=== PATIENT | female | born 1970 | race Caucasian/White ===

== ENCOUNTER → 2022-06-23 | Outpatient (CLI) | payer BC, SELFPAY ==
[2022-06-23 16:07] LABS: Absolute Lymphocyte Count 1.46 X10^3/uL (0.83-4.51); Absolute Neutrophil Count 3.3 X10^3/uL (2.0-7.7); Basophil# 0.04 X10^3/uL; Basophil% 0.7 % (0-1); Eosinophil# 0.18 X10^3/uL; Eosinophils% 3.1 % (0-5); Hematocrit 42.8 % (37-47); Hemoglobin 13.9 g/dL (12.0-15.0); Lymphocyte # 1.46 X10^3/ul (0.83-4.51); Lymphocyte % 25.2 % (19-41); Mean Corp Hgb Conc 32.5 g/dL (32-36); Mean Corpuscular Volume 89.2 fL (81-99); Mean Platelet Vol. 10.5 fl (6.2-12.0); Monocyte# 0.77 X10^3/uL; Monocyte% 13.3 % (0-10); NRBC Flagged by Analyzer 0 % (0-5); Neutrophil # 3.32 X10^3/uL (2.7-7.7); Neutrophil % 57.4 % (47-70); Platelet Count 342 K/mm3 (150-450); RBC Distribution Width CV 12.7 % (11.6-14.6); RBC Distribution Width SD 41.7 fl (35.1-43.9); White Blood Count 5.8 K/mm3 (4.4-11.0)
[2022-06-23 16:32] LABS: Erythrocyte Sedimentation Rate 41 mm/hr (0-30)
[2022-06-23 16:40] LABS: ALB/GLOB Ratio 0.9 RATIO (0.9-2.4); AST(SGOT) 20 U/L (15-37); Alanine Aminotransfer ALT/SGPT 35 U/L (13-56); Albumin, Serum 3.9 g/dL (3.2-5.0); Alkaline Phosphatase 79 U/L (45-117); Anion Gap 6 (5-15); BUN 13 mg/dL (7-18); BUN/Creat Ratio 11.6 RATIO (10-20); Calcium,Total 9.6 mg/dL (8.5-10.1); Chloride 103 mmol/L (98-107); Creatinine, Serum 1.12 mg/dL (0.55-1.02); EST Glomerular Filtration Rate 54 mL/min (>60); Est Glom Filt Rate - Afr Amer 65 mL/min (>60); Globulin 4.2 g/dL (2.2-4.2); Glucose 94 mg/dL (74-106); Potassium 3.5 mmol/L (3.5-5.1); Protein, Total 8.1 g/dL (6.4-8.2); Sodium Level 136 mmol/L (136-145)
[2022-06-26 15:08] LABS: Cytoplasmic Ab (C-ANCA) <1:20 titer (Neg:<1:20); Endomysial Antibody IgA Negative (Negative); Immunoglobulin A 388 mg/dL (87-352)
[2022-06-28 20:57] LABS: Anti-Smooth Muscle ABS 8 Units (0-19); Perinuclear Ab (P-ANCA) <1:20 titer (Neg:<1:20); t-Transglutaminase IgA <2 U/mL (0-3)
[2022-06-29 16:08] LABS: Anti-Centromere B Ab <0.2 AI (0.0-0.9); Anti-Chromatin 0.7 AI (0.0-0.9); Anti-Jo <0.2 AI (0.0-0.9); Anti-Scleroderma-70 AB <0.2 AI (0.0-0.9); RNP Ab 3.5 AI (0.0-0.9); SJOGREN'S Anti-SS-A test < 0.2 AI (0.0-0.9); SJOGREN'S Anti-SS-B test < 0.2 AI (0.0-0.9); Smith Ab <0.2 AI (0.0-0.9)
[2022-06-30 11:03] LABS: Anti-Mitochondrial AB <20.0 Units (0.0-20.0); Anti-dsDNA Ab 1 IU/mL (0-9)
== END | disposition home or self-care (01) ==
LOC: LAB 15:43
PROVIDERS: PCP Family Medicine; Visit Provider Nurse Practitioner Adult Health
DX: R11.2 Nausea with vomiting, unspecified (principal); R10.13 Epigastric pain
CPT/HCPCS: 36415; 80053; 82784; 83516; 85025; 85652; 86140; 86225; 86235; 86255; 86256

== ENCOUNTER 2022-07-20 05:16 | Day surgery (SDC) | payer BC, SELFPAY ==
[2022-07-20 05:44] VITALS: BP 126/86; PULSE 96; RESP 18; TEMP 36.6; O2SAT 96; BMI 40.4
[2022-07-20] MEDS: Lactated Ringers 1,000 ML 15 ML IV (05:47)
--- NOTE | 2022-07-20 06:30 | EGD_PTH ---
PATIENT: GARY LOYA LOC: EN U#:[id number] AGE/SX: 52/F ROOM: RE07/20/[address]: Dr. Rodrigue Birmingham DO : 1970 BED: DIS: 07/20/2022 SPEC #: [id number] RECD: 07/20/22 11:03 STATUS: MELISSA JOEY #: [id number] POLO: 07/20/22 06:[address]: Rodrigue Birmingham DEPT: SURGICAL PATHOLOGY RECD BY: Carmen House ENTERED: 07/20/22 13:59 SP TYPE: EGD BIOPSY OT DR: Dyan Voss PA-C Tissues: A - Gastric mucous membrane B - Esophagus, NOS C - COLON BIOPSY Procedures: Special Stain Group II Surgery Specimen Level IV Alcian Blue/PAS (control) HEADER OPERATION: Colonoscopy, EGD (MAC), biopsy PRE-OP DIAGNOSIS: Postprandial epigastric pain, nausea and vomiting TISSUE SUBMITTED: A ? Gastric antrum biopsy, B ? Distal esophagus biopsy, C ? Random colonic biopsy MICROSCOPIC DIAGNOSIS A. Gastric antrum, biopsy: Chronic gastritis. See comment. B. Distal esophagus, biopsy: Gastroesophageal junctional mucosa with chronic inflammation. No evidence of goblet cell metaplasia. See comment. C. Colon, random biopsy: No pathologic change. AM:mike 07/21/2022 COMMENT A. The results of immunohistochemistry for Helicobacter pylori will be reported separately ([id number]). B. Alcian blue/PAS stain with matched control supports the above diagnosis. MICROSCOPIC DESCRIPTION Slides are reviewed. GROSS DESCRIPTION A - Received in fixative is one container labeled with the patient's name and designated gastric antrum biopsy. The specimen consists of multiple irregular fragments of light sinha soft tissue that in aggregate measure 0.8 x 0.5 x 0.1 cm. The specimen is totally submitted in one cassette. B - Received in fixative is one container labeled with the patient's name and designated distal esophagus biopsy. The specimen consists of multiple irregular fragments of light sinha soft tissue that in aggregate measure 0.5 x 0.5 x 0.1 cm. The specimen is totally submitted in one cassette. C - Received in fixative is one container labeled with the patient's name and designated random colonic biopsy. The specimen consists of multiple irregular fragments of light sinha soft tissue that in aggregate measure 1.5 x 0.6 x 0.1 cm. The specimen is totally submitted in one cassette. / SJ:rg 07/20/2022 TC:3 CPT: 77575 x3, 63326
--- NOTE | 2022-07-20 06:30 | IMM_PTH ---
PATIENT: GARY LOYA LOC: EN U#:[id number] AGE/SX: 52/F ROOM: RE07/20/[address]: Dr. Rodrigue Birmingham DO : 1970 BED: DIS: 07/20/2022 SPEC #: [id number] RECD: 07/20/22 14:21 STATUS: MELISSA REQ #: [id number] POLO: 07/20/22 06:[address]: Rodrigue Birmingham DEPT: IMMUNOHISTOCHEMISTRY RECD BY: Rachelle Cordoba ENTERED: 07/20/22 14:21 SP TYPE: IMMUNO OTHR DR: Dyan Voss PA-C Tissues: A - Stomach, NOS Procedures: H Pylori (initial) PHYSICIAN & INSTITUTION [place] [id number] SPECIMEN INFORMATION: Tissue Source: A ? Gastric antrum Clinical Info: Postprandial epigastric pain, nausea and vomiting Specimen Number: [id number] CPT code: 56187 METHODOLOGY: Deparaffinized sections of prefer/formalin-fixed tissue or PAP/DQ stained slides are incubated with monoclonal/polyclonal antibodies/oligonucleotide probes. Localization is made via biotin free immunoperoxidase method. Appropriate controls are performed and reacted as expected. Results on target cell population are indicated in the following table: RESULTS: ANTIBODY / CLONE RESULT Block A H Pylori (polyclonal) negative These tests were developed and their performance characteristics determined by [facility]. They may not have been cleared or approved by the U.S. Food and Drug Administration. The FDA has determined that such clearance or approval is not necessary. The above immunohistochemical/dualISH markers are ordered and reviewed by the Pathologist. INTERPRETATION: A. Gastric antrum, biopsy: Negative for Helicobacter pylori organisms. AM:mike 07/21/2022
--- NOTE | 2022-07-20 06:32 | PCM.HP.BLA ---
History and Physical Date of Admission: 07/20/22 52 F who presents to the office today for epigastric/RUQ pain began after having Covid in 02/2022, sharp pain began a few weeks later, went to [facility] on 03/27/22 for epigastric pain.? She is accompanied by her mother.? Pain radiated to the back then. ED prescribed pantoprazole which she took for 10 days, then returned to omeprazole which she was already on, but no change in symptoms, so she switched back to pantoprazole. She didn't tolerate sucralfate. Ondansetron was helpful. CT abdomen pelvis with contrast showed left upper abdominal small bowel ileus, nonspecific mesenteric lymph nodes are present, no evidence of inflammatory or obstructive bowel changes. She can tolerate cheese sticks. Otherwise not eating during the day at work in order to prevent having symptoms there. Can't determine any particular foods that are problematic. She had cholecystectomy 2008, started omeprazole before then, wasn't symptomatic with current symptoms until 03/2022. Has to sleep on left side. Mother reports frequent coughing. Abd pain and nausea after eating. Has vomited bile in the morning a few times. Gets nausea and vomiting after eating some times, feels better after that. Only eating one meal a day now. Typically a normal BM first, then 30-45 min later she will have a loose BM, may have a couple of loose BMs, then done for the day. The bowel pattern isn't a change. One Coke per day. Has good appetite, no early satiety. No dysphagia. NSAIDS --- taking Advil Sinus 1 tab at HS, stopped it during Covid and just restarted 2 wks ago on a bile acid sequestrant 2009 upper and lower endoscopy 03/2022 labs positive CARLI, uric acid elevated 6.5 ROS Const Constitutional: No fatigue ENT ENT: No difficulty swallowing Gastro GI: Positive for abdominal pain, constipation, heartburn, excessive flatus, nausea/dyspepsia and vomiting; No belching, bloating, change in bowel habits, change in stool character, coffee ground emesis, cramping, diarrhea, difficulty swallowing, feeling full early, incontinent of stools, Vomiting blood/hematemesis, Blood in stool, loose stools, Black,tarry stools, pain with swallowing or other Musc Musculoskeletal: No joint pain Skin Skin: No yellowing of the eye or itchy eyes Psych Psychiatric: Positive for anxiety and No depression Endo Endocrine: No fatigue Aller/Imm Allergy/Immunologic: No itchy eyes Miguel Angel/Lymp Hematologic/Lymphatic: No easy bleeding or easy bruising Exam Const General: cooperative and no acute distress Nutritional Appearance: not obese Orientation: alert, awake and oriented x3 HENMT Head: normal to inspection Eyes General: appearance normal, both eyes and all related structures Resp Effort & Inspection: normal respiratory effort GI Palpation: soft, no hepatosplenomegaly, no masses and tender in the epigastrum Skin General: no rashes or lesions noted Neuro Gait: normal gait Quality Reporting Tobacco Screening (CMS 138) Smoking Status: Never smoker Assessment and Plan Assessment and Plan (1) Postprandial epigastric pain: ?Status:?Acute ?Plan: 52-year-old female with new onset epigastric/right upper quadrant pain that began after having COVID She will be scheduled for egd and screening colonoscopy DDx includes gastroparesis secondary to covid virus, bile acid reflux, PUD Case discussed with Dr Birmingham. Short term trial of low dose metoclopramide, will see how effective that is Avoid NSAIDs Continue PPI ? (2) Nausea & vomiting: ?Status:?Acute ?Plan: as above ? ? ? Medications: New metoclopramide HCl 5 mg? PO QAC 20 tabs 0RF ? ? I have examined the patient and the H&P has been reviewed. There are no clinical changes since date of exam.
[2022-07-20 07:06] VITALS: BP 126/86; BP 98/80; PULSE 85; RESP 16; TEMP 36.3; O2SAT 93
--- NOTE | 2022-07-20 07:08 | OP.CCLET_ITS ---
07/20/2022 [facility] Re : Upper GI endoscopy procedure for June Voss This procedure was performed on Wednesday, July 20, 2022. My impressions and recommendations are as follows: Impressions : - Z-line irregular, 38 cm from the incisors. Biopsied. - Small hiatal hernia. - Erythematous mucosa in the antrum. Biopsied. - No gross lesions in the second portion of the duodenum. Recommendations : - Await pathology results. - Continue present medications. My findings are described in the full procedure note, which is enclosed. If I can be of further assistance, please feel free to contact me at . Sincerely, Rodrigue Birmingham, 07/20/2022 7:07:48 AM This report has been signed electronically.
--- NOTE | 2022-07-20 07:08 | OP.EGD_ITS ---
Patient Name: June Aguilera Procedure Date: 07/20/2022 6:27 AM Date of : 1970 Age: 52 Procedure: Upper GI endoscopy Indications: Abdominal pain in the right upper quadrant, Functional Dyspepsia, Failure to respond to medical treatment Providers: Rodrigue Birmingham DO Medicines: Monitored Anesthesia Care Patient Profile: This is a 52 year old female. Refer to note in patient chart for documentation of history and physical. Patient has symptoms of acute abdominal cramping, acute global abdominal pain and acute nausea. Complications: No immediate complications. Procedure: Pre-Anesthesia Assessment: - Prior to the procedure, a History and Physical was performed, and patient medications and allergies were reviewed. The risks and benefits of the procedure and the sedation options and risks were discussed with the patient. All questions were answered and informed consent was obtained. Patient identification and proposed procedure were verified by the physician in the pre-procedure area. Mental Status Examination: alert and oriented. Airway Examination: normal oropharyngeal airway and neck mobility. Respiratory Examination: clear to auscultation. CV Examination: normal. Prophylactic Antibiotics: The patient does not require prophylactic antibiotics. Prior Anticoagulants: The patient has taken no previous anticoagulant or antiplatelet agents. ASA Grade Assessment: II - A patient with mild systemic disease. After reviewing the risks and benefits, the patient was deemed in satisfactory condition to undergo the procedure. The anesthesia plan was to use monitored anesthesia care (MAC). Immediately prior to administration of medications, the patient was re-assessed for adequacy to receive sedatives. The heart rate, respiratory rate, oxygen saturations, blood pressure, adequacy of pulmonary ventilation, and response to care were monitored throughout the procedure. The physical status of the patient was re-assessed after the procedure. After obtaining informed consent, the endoscope was passed under direct vision. Throughout the procedure, the patient's blood pressure, pulse, and oxygen saturations were monitored continuously. The Colonoscope was introduced through the mouth, and advanced to the second part of duodenum. The upper GI endoscopy was accomplished without difficulty. The patient tolerated the procedure well. Scope In: 6:40:36 AM Scope Out: 6:45:30 AM Total Procedure Duration Time 0 hours 4 minutes 54 seconds Findings: The Z-line was irregular and was found 38 cm from the incisors. Biopsies were taken with a cold forceps for histology. Verification of patient identification for the specimen was done. Estimated blood loss was minimal. A small hiatal hernia was present. Patchy mildly erythematous mucosa without bleeding was found in the gastric antrum. Biopsies were taken with a cold forceps for histology. Verification of patient identification for the specimen was done. Estimated blood loss was minimal. No gross lesions were noted in the second portion of the duodenum. Impression: - Z-line irregular, 38 cm from the incisors. Biopsied. - Small hiatal hernia. - Erythematous mucosa in the antrum. Biopsied. - No gross lesions in the second portion of the duodenum. Recommendation: - Await pathology results. - Continue present medications. Procedure Code(s): --- Professional --- 00086, Esophagogastroduodenoscopy, flexible, transoral; with biopsy, single or multiple CPT copyright 2017 [employer]. All rights reserved. The codes documented in this report are preliminary and upon braille coder review may be revised to meet current compliance requirements. Rodrigue Birmingham DO 07/20/2022 7:07:48 AM This report has been signed electronically. Number of Addenda: 0 Note Initiated On: 07/20/2022 6:27 AM
[2022-07-20 07:11] VITALS: BP 105/79; BP 126/86; PULSE 80; RESP 16; O2SAT 94
--- NOTE | 2022-07-20 07:11 | OP.CCLET_ITS ---
07/20/2022 [facility] Re : Colonoscopy procedure for June Voss This procedure was performed on Wednesday, July 20, 2022. My impressions and recommendations are as follows: Impressions : - Congested mucosa in the entire examined colon. Biopsied. - Diverticulosis in the recto-sigmoid colon and in the sigmoid colon. - The examined portion of the ileum was normal. Recommendations : - Discharge patient to home. - Resume previous diet. - Continue present medications. - Await pathology results. - Repeat colonoscopy in 10 years for screening purposes. My findings are described in the full procedure note, which is enclosed. If I can be of further assistance, please feel free to contact me at . Sincerely, Rodrigue Birmingham, 07/20/2022 7:10:25 AM This report has been signed electronically.
--- NOTE | 2022-07-20 07:11 | OP.COLON_ITS ---
Patient Name: June Aguilera Procedure Date: 07/20/2022 6:45 AM Date of : 1970 Age: 52 Procedure: Colonoscopy Indications: Abdominal pain in the right lower quadrant Providers: Rodrigue Birmingham DO Medicines: Monitored Anesthesia Care Patient Profile: This is a 52 year old female. Refer to note in patient chart for documentation of history and physical. Patient has symptoms of acute abdominal cramping, acute global abdominal pain and acute nausea. Last Colonoscopy: more than 10 years ago. Complications: No immediate complications. Procedure: Pre-Anesthesia Assessment: - Prior to the procedure, a History and Physical was performed, and patient medications and allergies were reviewed. The risks and benefits of the procedure and the sedation options and risks were discussed with the patient. All questions were answered and informed consent was obtained. Patient identification and proposed procedure were verified by the physician in the pre-procedure area. Mental Status Examination: alert and oriented. Airway Examination: normal oropharyngeal airway and neck mobility. Respiratory Examination: clear to auscultation. CV Examination: normal. Prophylactic Antibiotics: The patient does not require prophylactic antibiotics. Prior Anticoagulants: The patient has taken no previous anticoagulant or antiplatelet agents. ASA Grade Assessment: II - A patient with mild systemic disease. After reviewing the risks and benefits, the patient was deemed in satisfactory condition to undergo the procedure. The anesthesia plan was to use monitored anesthesia care (MAC). Immediately prior to administration of medications, the patient was re-assessed for adequacy to receive sedatives. The heart rate, respiratory rate, oxygen saturations, blood pressure, adequacy of pulmonary ventilation, and response to care were monitored throughout the procedure. The physical status of the patient was re-assessed after the procedure. After I obtained informed consent, the scope was passed under direct vision. Throughout the procedure, the patient's blood pressure, pulse, and oxygen saturations were monitored continuously. The Colonoscope was introduced through the anus and advanced to the terminal ileum. The colonoscopy was performed without difficulty. The patient tolerated the procedure well. The quality of the bowel preparation was good. Scope In: 6:47:58 AM Scope Withdrawal Time 0 hours 9 minutes 39 seconds Scope Out: 7:00:03 AM Total Procedure Duration Time 0 hours 12 minutes 5 seconds Findings: The perianal and digital rectal examinations were normal. An area of moderately congested mucosa was found in the entire colon. Biopsies were taken with a cold forceps for histology. Verification of patient identification for the specimen was done. Estimated blood loss was minimal. A few small-mouthed diverticula were found in the recto-sigmoid colon and sigmoid colon. The terminal ileum appeared normal. Impression: - Congested mucosa in the entire examined colon. Biopsied. - Diverticulosis in the recto-sigmoid colon and in the sigmoid colon. - The examined portion of the ileum was normal. Recommendation: - Discharge patient to home. - Resume previous diet. - Continue present medications. - Await pathology results. - Repeat colonoscopy in 10 years for screening purposes. Procedure Code(s): --- Professional --- 91809, Colonoscopy, flexible; with biopsy, single or multiple CPT copyright 2017 [employer]. All rights reserved. The codes documented in this report are preliminary and upon oracle solutions architect review may be revised to meet current compliance requirements. Rodrigue Birmingham DO 07/20/2022 7:10:25 AM This report has been signed electronically. Number of Addenda: 0 Note Initiated On: 07/20/2022 6:45 AM
[2022-07-20 07:16] VITALS: BP 101/75; BP 126/86; PULSE 83; RESP 16; O2SAT 93
[2022-07-20 07:21] VITALS: BP 113/69; BP 126/86; PULSE 67; RESP 16; TEMP 36.6; O2SAT 94
[2022-07-20 07:40] VITALS: BP 126/86
== END 2022-07-20 07:58 | disposition home or self-care (01) ==
LOC: EN 05:21 → AC 05:21
PROVIDERS: PCP Family Medicine; Referring Provider Family Medicine; Visit Provider Internal Medicine Gastroenterology
PROC: 0DJD8ZZ Inspection of Lower Intestinal Tract, Via Natural or Artificial Opening Endoscopic (ICD-10-PCS; CPT 45378; principal; 2022-07-20 06:25)
DX: Z12.11 Encounter for screening for malignant neoplasm of colon (principal); K29.50 Unspecified chronic gastritis without bleeding; K57.30 Diverticulosis of large intestine without perforation or abscess without bleeding; K20.90 Esophagitis, unspecified without bleeding; K44.9 Diaphragmatic hernia without obstruction or gangrene; Z86.16 Personal history of COVID-19; Z90.49 Acquired absence of other specified parts of digestive tract
CPT/HCPCS: 43239; 45380; 88305; 88313; 88342; J7120; J2405

== ENCOUNTER → 2022-08-03 | Outpatient (CLI) | payer BC, SELFPAY ==
[2022-08-07 19:21] LABS: Pancreatic Elastase, Fecal 241 (>200)
== END | disposition home or self-care (01) ==
LOC: LAB 14:10
PROVIDERS: PCP Family Medicine; Referring Provider Nurse Practitioner Adult Health; Visit Provider Nurse Practitioner Adult Health
DX: R19.7 Diarrhea, unspecified (principal); R10.13 Epigastric pain; R11.2 Nausea with vomiting, unspecified; K58.9 Irritable bowel syndrome, unspecified
CPT/HCPCS: 82653; 87493; 87506

== ENCOUNTER → 2022-08-05 | Outpatient (CLI) | payer BC, SELFPAY ==
--- NOTE | 2022-08-05 07:26 | US_ITS ---
STUDY: ABDOMINAL ULTRASOUND - RIGHT UPPER QUADRANT REASON FOR VISIT: Female, 52 years old postprandial RUQ pain -- RUQ x 4 months TECHNIQUE: Ultrasound evaluation of the right upper quadrant was performed with real-time and static shafer-scale imaging. TECHNICAL QUALITY: Adequate. COMPARISON: None. FINDINGS: Liver: The liver measures 15.4 cm. There is increased echogenicity consistent with fatty infiltration. The bile ducts are within normal limits. There is hepatic color flow. The direction of portal flow is hepatopetal. There is no demonstrated mass lesion. Gallbladder: The patient is status post cholecystectomy. Common Bile Duct (C.B.D.): The common bile duct measures 4.1 mm. Pancreas: Normal size of the head, body and tail of the pancreas. There is increased echogenicity of the pancreas. There is no demonstrated pancreatic mass or cyst. Right Kidney: Normal size of the right kidney. The right kidney measures 10.5 cm x 5.9 cm x 4 cm. Normal renal cortex. The right cortex measures 1.6 cm. There is a 1.4 cm x 1.1 cm x 1.6 cm cyst. There is no right hydronephrosis. US/Abdomen Limited IMPRESSION: Fatty infiltration of the liver. Status post cholecystectomy. Right renal cyst. Electronically Signed: Rene Adhikari MD at 13:37 EST ,
== END | disposition home or self-care (01) ==
PROVIDERS: PCP Family Medicine; Referring Provider Nurse Practitioner Adult Health; Visit Provider Nurse Practitioner Adult Health
DX: R10.11 Right upper quadrant pain (principal)
CPT/HCPCS: 76705

== ENCOUNTER → 2022-08-20 | Outpatient (CLI) | payer BC, SELFPAY ==
--- NOTE | 2022-08-20 08:47 | US_ITS ---
STUDY: ABDOMINAL ULTRASOUND - ELASTOGRAPHY REASON FOR VISIT: Female, 52 years old. Fatty infiltration of the liver. TECHNIQUE: Liver stiffness measurements were obtained on a [employer] RS 85 ultrasound machine using a CA 1-7 probe following the SRU guidelines. 3 measurements were obtained using a 2-D-SWE method. The IQR/M was 18% suggesting a quality data set. TECHNICAL QUALITY: Adequate. COMPARISON: Comparison is made with prior study dated 08/05/2022. FINDINGS: Liver: Fatty infiltration of the liver. Median liver stiffness measured 11.3 kPa. US/Elastography Parenchyma/Organ IMPRESSION: Liver stiffness measures 11.3 kPa compatible with F2-F3 (Mild to moderate liver fibrosis) Metavir score. Electronically Signed: Rene Adhikari MD at 10:30 EST ,
== END | disposition home or self-care (01) ==
PROVIDERS: PCP Family Medicine; Referring Provider Nurse Practitioner Adult Health; Visit Provider Nurse Practitioner Adult Health
DX: K76.0 Fatty (change of) liver, not elsewhere classified (principal)
CPT/HCPCS: 76981

== ENCOUNTER → 2022-08-21 | Outpatient (CLI) | payer BC, SELFPAY ==
[2022-08-21 11:23] LABS: International Normalized Ratio 1.1; Prothrombin Time (Protime)PT. 13.5 SECONDS (11.7-14.9)
[2022-08-21 11:49] LABS: Hemoglobin A1c 5.6 % (3.8-5.6)
[2022-08-21 11:53] LABS: AST(SGOT) 20 U/L (15-37); Alanine Aminotransfer ALT/SGPT 30 U/L (13-56); Albumin, Serum 3.7 g/dL (3.2-5.0); Alkaline Phosphatase 91 U/L (45-117); Bilirubin, Direct 0.19 mg/dL (0.00-0.30); Ferritin 83 ng/mL (8-252); Globulin 4.2 g/dL (2.2-4.2); LDH 163 U/L (84-246); Protein, Total 7.9 g/dL (6.4-8.2)
[2022-08-21 12:12] LABS: HIV - WCH Non-Reactive (Nonreactive)
[2022-08-22 22:14] LABS: Anti-Mitochondrial AB <20.0 Units (0.0-20.0)
[2022-08-24 13:07] LABS: Angiotensin Convert Enzyme 68 U/L (14-82); Ceruloplasmin 29.2 mg/dL (19.0-39.0); HEPATITIS B SURFACE AG Negative (Negative); Hep C Antibodies Non Reactive (Non Reactive); Hepatitis A IgM Antibody Negative (Negative); Hepatitis B Core AB IgM Negative (Negative)
[2022-08-25 20:52] LABS: Anti-Smooth Muscle ABS 8 Units (0-19); Copper, Serum or Plasma 127 ug/dL (80-158); Haptoglobin 233 mg/dL (33-346)
== END | disposition home or self-care (01) ==
LOC: LAB 09:59
PROVIDERS: PCP Family Medicine; Referring Provider Nurse Practitioner Adult Health; Visit Provider Nurse Practitioner Adult Health
DX: K76.0 Fatty (change of) liver, not elsewhere classified (principal)
CPT/HCPCS: 36415; 80074; 80076; 82105; 82140; 82164; 82390; 82525; 82728; 83010; 83036; 83516; 83615; 85610; 86703

== ENCOUNTER → 2022-09-08 | Outpatient (CLI) | payer BC, SELFPAY ==
--- NOTE | 2022-09-08 11:54 | NM_ITS ---
CLINICAL: 52-year-old female with history of early satiety and chronic nausea. SEMI-SOLID PHASE 99m Tc SULFUR COLLOID GASTRIC EMPTYING STUDY COMPARISON: None available FINDINGS: The patient was administered 1.1 mCi of 99m Tc sulfur colloid mixed with oatmeal and consumed per os. Image acquisitions in the anterior-posterior projections were obtained for 60 minutes. There is prompt visualization of the stomach. There is no gastroesophageal reflux identified. The T ? raw data emptying was calculated to be 47.08 minutes, (Normal: 12-56 minutes). NM/Gastric Emptying Study IMPRESSION: 1. NORMAL 99m Tc sulfur colloid semi-solid phase (oatmeal) gastric emptying imaging examination. A. There is normal and preserved semi-solid phase gastric emptying compared to normal controls. (Julius et al, J Nucl Med Tech 38: 186, 2010). Electronically Signed: Pal Garner, at 20:25 EST ,
== END | disposition home or self-care (01) ==
PROVIDERS: PCP Family Medicine; Referring Provider Nurse Practitioner Adult Health; Visit Provider Nurse Practitioner Adult Health
DX: R68.81 Early satiety (principal); R10.11 Right upper quadrant pain; R10.13 Epigastric pain; R11.2 Nausea with vomiting, unspecified
CPT/HCPCS: 78264; A9541

== ENCOUNTER → 2022-10-09 | Outpatient (CLI) | payer BC, SELFPAY ==
--- NOTE | 2022-10-09 09:48 | NM_ITS ---
CLINICAL: 52-year-old female with history of right upper quadrant pain, status post remote cholecystectomy. RADIONUCLIDE HEPATOBILIARY SCINTIGRAPHY COMPARISON: Abdominal ultrasound report 08/05/2022 FINDINGS: Following the intravenous administration of 5.2 mCi of 99m Tc Mebrofenin, hepatobiliary images reveal: 1. Relatively prompt and homogeneous radiopharmaceutical concentration is noted by a normal sized liver. No parenchymal defects are identified. 2. Gallbladder activity is not identified during 60 minutes of sequential imaging commensurate with known history of prior cholecystectomy. 3. Small intestinal tract is observed at 8 minutes post radiopharmaceutical administration. 4. Washout of the radiopharmaceutical by the hepatic parenchyma appears qualitatively normal. NM/Hepatobilliary Imaging IMPRESSION: 1. Nonvisualization of the gallbladder is consistent with prior cholecystectomy. 2. Further evaluation of this individual may be undertaken utilizing pre-examination CCK quantitative hepatobiliary scintigraphy to exclude the presence of post cholecystectomy syndrome-Sphincter of Oddi dysfunction. (Phuong et al, J Nucl Med 33: 1216, 1992). Electronically Signed: Pal Garner, at 8:38 EDT ,
== END | disposition home or self-care (01) ==
LOC: NM 09:47
PROVIDERS: PCP Family Medicine; Referring Provider Nurse Practitioner Adult Health; Visit Provider Nurse Practitioner Adult Health
DX: R10.11 Right upper quadrant pain (principal)
CPT/HCPCS: 78226; A9537

== ENCOUNTER → 2022-10-16 | Outpatient (CLI) | payer BC, SELFPAY ==
[2022-10-16 17:22] LABS: Lipase 32 U/L (13-75)
== END | disposition home or self-care (01) ==
LOC: LAB 15:44
PROVIDERS: PCP Family Medicine; Referring Provider Nurse Practitioner Adult Health; Visit Provider Nurse Practitioner Adult Health
DX: R10.11 Right upper quadrant pain (principal)
CPT/HCPCS: 36415; 83690

== ENCOUNTER → 2022-11-05 | Outpatient (CLI) | payer BC, SELFPAY ==
--- NOTE | 2022-11-05 16:15 | MRI_ITS ---
STUDY: MR CHOLANGIOPANCREATOGRAPHY (MRCP) REASON FOR EXAM: Female, 52 years old. Postprandial right upper quadrant pain with elevated bilirubin TECHNIQUE: Standard MRCP technique was utilized. Three-dimensional reconstruction images performed of the biliary system at an independent workstation and reviewed at time of dictation. COMPARISON: HIDA scan 10/09/2022, ultrasound 08/05/2022 FINDINGS: MRCP: Gall Bladder: Gall bladder is surgically absent. Cystic duct: Cystic duct was not well visualized. Intrahepatic ducts: Normal visualized intrahepatic ducts with no demonstrated fixed filling defect, dilation or stricture. Common hepatic duct: Normal with no demonstrated fixed filling defect, dilation or stricture. Common bile duct: Normal with no demonstrated fixed filling defect, dilation or stricture. Pancreatic duct: Normal with no demonstrated fixed filling defect, dilation or stricture. MRI/MRCP Abdomen without Contrast IMPRESSION: 1. Normal MRCP in a patient who is status post cholecystectomy. Electronically Signed: Rohit Avendaño (Brooks), at 21:51 EDT ,
== END | disposition home or self-care (01) ==
LOC: MRI 15:56
PROVIDERS: PCP Family Medicine; Visit Provider Nurse Practitioner Adult Health
DX: R10.11 Right upper quadrant pain (principal); R17 Unspecified jaundice
CPT/HCPCS: 74181